=== PATIENT | female | born 1950 | race Caucasian/White ===

== ENCOUNTER 2021-02-23 10:02 | Emergency (ER) | payer MEDICARE, OTHER ==
[~2021-02-23] VITALS: Ht 157.5 cm; Wt 69.4 kg
[~2021-02-23 10:02] MED LIST: ACETAMINOPHEN500 M1 PO; NAPROXEN250 MG PO
== END 2021-02-23 13:07 | disposition home or self-care (01) ==
LOC: ED 10:02
DX: R10.10 Upper abdominal pain, unspecified (principal); Z88.0 Allergy status to penicillin; Z88.5 Allergy status to narcotic agent
CPT/HCPCS: 74177; 80053; 81001; 83690; 85025; 99284-25; J7040; Q9967

== ENCOUNTER 2025-07-30 09:51 | Emergency (ER) | payer MEDICARE, OTHER ==
[~2025-07-30] VITALS: Ht 157.5 cm; Wt 62.6 kg
[~2025-07-30 09:51] MED LIST changes: +GABAPENTIN300 MG PO; +VENTOLIN HFA18 GM INH
[2025-07-30 10:38] LABS: BASOPHILS 0.9 % (0.1-1.2); EOSINOPHILS 1.0 % (0.7-5.8); LYMPHOCYTES 20.1 % (19.3-51.7); MCH 29.6 PG (25.6-32.2); MCHC 34.1 g/dL (32.2-35.5); MCV 86.9 fL (79.4-94.8); MONOCYTES 6.1 % (4.7-12.5); NEUTROPHILS 71.6 % (34.0-71.1); RBC 4.59 M/uL (3.93-5.22)
[2025-07-30 11:10] LABS: INR 1.0 (0.80-1.30); PROTIME 12.5 Sec (11.2-14.2)
[2025-07-30 11:14] LABS: ALT (SGPT) 28.0 U/L (14-59); AST (SGOT) 14.0 U/L (15-37); GLOMERULAR FILTRATION RATE,EST 66.0 mL/min (>60); PROTEIN, TOTAL 8.2 g/dL (6.4-8.2); UREA NITROGEN 12.0 mg/dL (7-18)
[2025-07-30 11:27] LABS: BLOOD/HGB, URINE NEGATIVE (Negative); KETONE, URINE NEGATIVE (Negative); LEUK ESTERASE, URINE NEGATIVE (negative); NITRITE, URINE NEGATIVE (negative)
[2025-07-30 11:42] LABS: AMPHETAMINES, URINE NEGATIVE (NEGATIVE); BARBITURATES, URINE NEGATIVE (NEGATIVE); BENZODIAZEPINE, URINE NEGATIVE (NEGATIVE); CANNABINOID, URINE NEGATIVE (NEGATIVE); COCAINE, URINE NEGATIVE (NEGATIVE); ECSTASY, URINE NEGATIVE (NEGATIVE); FENTANYL, URINE NEGATIVE (NEGATIVE); METHADONE, URINE NEGATIVE (NEGATIVE); OPIATES, URINE NEGATIVE (NEGATIVE); OXYCODONE, URINE NEGATIVE (NEGATIVE); PHENCYCLIDINE, URINE NEGATIVE (NEGATIVE)
[2025-07-30 13:07] VITALS: BP 158/81
--- NOTE | 2025-07-31 12:58 | EKG ---
[facility] [address] [facility] [place], [place] [address] [address] Sin[address] N[address] abnormality Abnormal ECG No previous ECGs available Confirmed by Rashard Felder DO ([id number]) on 07/31/2025 12:58:21 PM Electronically Signed By: RASHARD FELDER DO 07/31/25 1258 PATIENT NAME: JOHN PAUL DOWNS DORIAN Electrocardiogram DATE OF : 52 PHYSICIAN: RASHARD FELDER DO REPORT #: [id number] REPORT IS CONFIDENTIAL AND NOT TO BE RELEASED WITHOUT AUTHORIZATION
== END 2025-07-30 13:05 | disposition home or self-care (01) ==
LOC: ED 09:51
PROVIDERS: Emergency Medicine
DX: G45.4 Transient global amnesia (principal); Z88.0 Allergy status to penicillin; Z88.5 Allergy status to narcotic agent; Z79.899 Other long term (current) drug therapy; I66.11 Occlusion and stenosis of right anterior cerebral artery
CPT/HCPCS: 36415; 70450; 70496; 70498; 71045; 80053; 80307; 81003; 85025; 85610; 85730; 93005; 93010; 99285; Q3014; Q9967